=== PATIENT | male | born 1965 | race Caucasian/White ===

== ENCOUNTER 2020-09-26 19:55 | Emergency (ER) | payer OTHER ==
[2020-09-26] MEDS ORDERED: Albuterol Sulfate 2.5 mg/0.5 ml Neb ONE (20:18)
[2020-09-26] MEDS ORDERED: predniSONE 20 MG TAB ONE (21:06)
== END 2020-09-26 21:09 | disposition home or self-care (01) ==
LOC: NAV ERS 19:55
DX: J45.901 Unspecified asthma with (acute) exacerbation (principal); I10 Essential (primary) hypertension; Z79.899 Other long term (current) drug therapy
CPT/HCPCS: 71045; 93005; 94760; J7512; J7611; J7620